=== PATIENT | male | born 1995 | race African-American/Black ===

== ENCOUNTER 2023-09-11 18:35 | Emergency (ER) | payer OTHER ==
[~2023-09-11] VITALS: Ht 180.3 cm; Wt 128.0 kg
[2023-09-11 18:43] VITALS: O2SAT 98
[2023-09-11] MEDS ORDERED: TOPUD MT (19:56)
[2023-09-11] MEDS ORDERED: LIDO700A15 TP (19:56)
[2023-09-11 20:38] VITALS: BP 159/99; PULSE 74; RESP 18; TEMP 97.6
== END 2023-09-11 20:40 | disposition home or self-care (01) ==
LOC: ER 18:35
DX: M54.9 Dorsalgia, unspecified (principal); R07.9 Chest pain, unspecified
CPT/HCPCS: 71045; 93005; 99283